=== PATIENT | male | born 1995 | race Caucasian/White ===

== ENCOUNTER 2020-05-03 15:46 | Emergency (ER) | payer BC, OTHER ==
--- NOTE | 2020-05-03 16:26 | EDM.PDOC ---
ED HPI GENERAL MEDICAL PROBLEM - General Chief Complaint: ENT Problem Stated Complaint: LEFT BOTTOM BACK, THROBING Time Seen by Provider: 05/03/20 16:20 Source of Information: Reports: Patient, RN, RN Notes Reviewed History Limitations: Reports: No Limitations - History of Present Illness INITIAL COMMENTS - FREE TEXT/NARRATIVE: Patient presents to the ED via personal vehicle with complaints of tooth pain. The patient relates his back left molar has been bother him for two months. He denies visiting the dentist since this pain began, stating he has not had a dental visit in the past four years. He has been utilizing Tylenol which has not offered him alleviation of this pain. He states the pain is localized and throbbing in nature. Left Lower Oral/Mouth Pain Score (Numeric/FACES): 6 - Related Data Allergies Allergy/AdvReac Type Severity Reaction Status Date / Time No Known Allergies Allergy Verified 05/03/20 16:12 Home Meds: Home Meds Albuterol [Take Home: Albuterol 18 GM, 1 INH Pack] 2 puff IH Q4H PRN 05/03/20 [History] Fluticasone Furoate [Arnuity Ellipta] 1 puff IH DAILY 05/03/20 [History] Fluticasone Propionate [Flovent HFA 110 MCG] 2 puff IN BID 05/03/20 [History] ED ROS ENT - Review of Systems Review Of Systems: Comprehensive ROS is negative, except as noted in HPI. ED EXAM, ENT - Physical Exam Exam: See Below Exam Limited By: No Limitations General Appearance: Alert, WD/WN, No Apparent Distress Mouth/Throat: Normal Gums, Normal Lips, Normal Oropharynx, Dental Pain (To back left molar), Dental Tenderness, Dental Trauma (Back left molar chipped with significant carries). No: Normal Teeth, Gum Swelling, Lip Ulcers, Oral Ulcers, Perioral Cyanosis, Throat Pain, Throat Swelling, Tongue Swelling, Tonsillar Erythema, Tonsillar Exudates Head: Atraumatic, Normocephalic Neck: Normal Inspection, Supple, Non-Tender, Full Range of Motion. No: Lymphadenopathy (L), Lymphadenopathy (R), Tender Lateral, Tender Midline Course - Vital Signs Last Recorded V/S: Last Vital Signs Temp 98.7 F 05/03/20 16:15 Pulse 60 05/03/20 16:15 Resp 16 05/03/20 16:15 BP 139/73 05/03/20 16:15 Pulse Ox 96 05/03/20 16:15 - Re-Assessments/Exams Free Text/Narrative Re-Assessment/Exam: 05/03/20 16:36 Viscous lidocaine administered for pain. Patient to discharge home with viscous lidocaine prescription with orders to follow up with dentist early next week. Departure - Departure Time of Disposition: 16:26 Disposition: Home, Self-Care 01 Condition: Good Clinical Impression: Tooth pain Chipped tooth Qualifiers: Encounter type: initial encounter Fracture type: open Qualified Code(s): S02.5XXB - Fracture of tooth (traumatic), initial encounter for open fracture - Discharge Information *PRESCRIPTION DRUG MONITORING PROGRAM REVIEWED*: Not Applicable *COPY OF PRESCRIPTION DRUG MONITORING REPORT IN PATIENT LARRY: Not Applicable Instructions: Tooth Injuries, [id number] Additional Instructions: Rx: Viscous lidocaine See dentist Tuesday or Tuesday of next week. Sepsis Event Note (ED) - Evaluation Sepsis Screening Result: No Definite Risk - Focused Exam Vital Signs: Vital Signs Temp Pulse Resp BP Pulse Ox 05/03/20 16:15 98.7 F 60 16 139/73 96
[2020-05-03] MEDS ORDERED: Lidocaine 2% Viscous Solution 15 ML Cup PO ONE (16:28)
== END 2020-05-03 16:45 | disposition home or self-care (01) ==
LOC: DL.ED 15:46
DX: K03.81 Cracked tooth (principal); K02.9 Dental caries, unspecified
CPT/HCPCS: 99282; A9270

== ENCOUNTER 2020-07-25 16:38 | Emergency (ER) | payer BC ==
--- NOTE | 2020-07-25 18:39 | EDM.PDOC ---
ED HPI GENERAL MEDICAL PROBLEM - General Chief Complaint: Respiratory Problem Stated Complaint: INHALER RAN OUT, TROUBLE BREATHING Time Seen by Provider: 07/25/20 18:25 Source of Information: Reports: Patient, RN, RN Notes Reviewed History Limitations: Reports: No Limitations - History of Present Illness INITIAL COMMENTS - FREE TEXT/NARRATIVE: Pt presents to ER with c/o wheezing and asthma flare up. He lost his inhaler last night and is out of refills. Pt states he does not have a regular doctor for asthma and medication management. He states he has 2 days duration of having trouble breathing, but worse since yesterday. Pt's oxygen sats 95% RA per investment consultant. Pt denies having pain, cough, fever, or COVID exposure. Onset: Gradual Duration: Getting Worse Location: Reports: Chest Severity: Moderate Improves with: Reports: None Worsens with: Reports: None Associated Symptoms: Reports: No Other Symptoms - Related Data Allergies Allergy/AdvReac Type Severity Reaction Status Date / Time No Known Allergies Allergy Verified 07/25/20 17:09 Home Meds: Home Meds Albuterol [Take Home: Albuterol 18 GM, 1 INH Pack] 2 puff IH Q4H PRN 05/03/20 [History] Past Medical History HEENT History: Reports: None Cardiovascular History: Reports: None Respiratory History: Reports: None Gastrointestinal History: Reports: None Genitourinary History: Reports: None Musculoskeletal History: Reports: Other (See Below) Other Musculoskeletal History: scoliosis Neurological History: Reports: None Psychiatric History: Reports: None Endocrine/Metabolic History: Reports: None Hematologic History: Reports: None Immunologic History: Reports: None Oncologic (Cancer) History: Reports: None Dermatologic History: Reports: None - Infectious Disease History Infectious Disease History: Reports: None - Past Surgical History Head Surgeries/Procedures: Reports: None Musculoskeletal Surgical History: Reports: Other (See Below) Other Musculoskeletal Surgeries/Procedures:: alicia in back Social & Family History - Family History Family Medical History: No Pertinent Family History - Tobacco Use Tobacco Use Status *Q: Current Some Day Tobacco User Years of Tobacco use: 2 Packs/Tins Daily: 0.5 Second Hand Smoke Exposure: No - Caffeine Use Caffeine Use: Reports: Coffee, Soda Other Caffeine Use: Pre workout - Recreational Drug Use Recreational Drug Use: No - Living Situation & Occupation Living situation: Reports: with Family ED ROS GENERAL - Review of Systems Review Of Systems: Comprehensive ROS is negative, except as noted in HPI. ED EXAM, GENERAL - Physical Exam Exam: See Below Exam Limited By: No Limitations General Appearance: Alert, WD/WN, No Apparent Distress Nose: Normal Inspection, Normal Mucosa, No Blood Throat/Mouth: Normal Inspection, Normal Lips, Normal Teeth, Normal Gums, Normal Oropharynx, Normal Voice, No Airway Compromise Head: Atraumatic, Normocephalic Neck: Normal Inspection, Supple, Non-Tender, Full Range of Motion Respiratory/Chest: No Respiratory Distress, No Accessory Muscle Use, Chest Non-T kendra, Wheezing. No: Crackles, Rales, Rhonchi, Stridor Cardiovascular: Regular Rate, Rhythm Back Exam: Normal Inspection Neurological: Alert, Oriented, No Motor/Sensory Deficits Psychiatric: Normal Mood Skin Exam: Warm, Dry, Intact, Normal Color, No Rash Course - Vital Signs Last Recorded V/S: Last Vital Signs Temp 98.3 F 07/25/20 17:06 Pulse 72 07/25/20 17:06 Resp 16 07/25/20 17:06 BP 138/85 07/25/20 17:06 Pulse Ox 95 07/25/20 17:06 - Orders/Labs/Meds Orders: Active Orders 24 hr Category Date Time Status RT Aerosol Therapy [RC] ASDIRECTED Care 07/25/20 18:31 Active predniSONE Med 07/25/20 18:34 Once 60 mg PO ONETIME ONE Meds: Medications Discontinued Medications Generic Name Dose Route Start Last Admin Trade Name Savageq PRN Reason Stop Dose Admin Albuterol 6.7 gm 07/25/20 18:32 Proventil Hfa INH 07/25/20 18:33 ONETIME ONE Albuterol/Ipratropium 3 ml 07/25/20 18:31 Duoneb 3.0-0.5 Mg/3 Ml NEB 07/25/20 18:32 ONETIME ONE Departure - Departure Time of Disposition: 18:39 Disposition: Home, Self-Care 01 Condition: Good Clinical Impression: Acute asthma, Exacerbation of asthma - Discharge Information *PRESCRIPTION DRUG MONITORING PROGRAM REVIEWED*: Not Applicable *COPY OF PRESCRIPTION DRUG MONITORING REPORT IN PATIENT LARRY: Not Applicable Instructions: Asthma, Adult, [id number] Additional Instructions: Rx: Prednisone 20mg Rx: Albuterol Inhaler Follow up at [facility] in [place] this week for recheck and medication management. Call [phone] to make an appointment. Return to ER if you develop difficulty breathing. Sepsis Event Note (ED) - Evaluation Sepsis Screening Result: No Definite Risk - Focused Exam Vital Signs: Vital Signs Temp Pulse Resp BP Pulse Ox 07/25/20 17:06 98.3 F 72 16 138/85 95 - My Orders Last 24 Hours: My Active Orders 07/25/20 18:31 RT Aerosol Therapy [RC] ASDIRECTED 07/25/20 18:34 predniSONE 60 mg PO ONETIME ONE - Assessment/Plan Last 24 Hours: My Active Orders 07/25/20 18:31 RT Aerosol Therapy [RC] ASDIRECTED 07/25/20 18:34 predniSONE 60 mg PO ONETIME ONE
[2020-07-25] MEDS: predniSONE 20 MG Tab PO ONE (18:42)
[2020-07-25] MEDS: Albuterol/Ipratropium 3.0-0.5 MG/3 ML Neb Soln NEB ONE (18:43)
[2020-07-25] MEDS: Albuterol 6.7 GM Inhaler INH ONE (18:44)
== END 2020-07-25 18:58 | disposition home or self-care (01) ==
LOC: DL.ED 16:38
DX: J45.901 Unspecified asthma with (acute) exacerbation (principal); M41.9 Scoliosis, unspecified; F17.210 Nicotine dependence, cigarettes, uncomplicated
CPT/HCPCS: 94640; 99284; A9270; J7512; 99283; J7620-GY